=== PATIENT | female | born 1950 | race Caucasian/White ===

== ENCOUNTER → 2017-04-20 | Outpatient (CLI) | payer OTHER ==
--- NOTE | 2017-04-20 11:28 | DIAGNOSTIC IMAGING REPORT ---
RIGHT HIP UNILATERAL MIN 2 VIEWS CLINICAL HISTORY: Right hip pain COMPARISON: None. DISCUSSION: No fractures or dislocations are visualized. There are no erosive or destructive changes. The joint space appears relatively well preserved for age. IMPRESSION: Unremarkable conventional radiographic evaluation of the right hip for age Electronically signed by: Gwyn Johnson M.D. 04/20/2017 11:27 AM Dictated Date/Time: 04/20/2017 11:26 AM
== END | disposition home or self-care (01) ==
LOC: C.RDSM 11:00
PROVIDERS: ATTEND Physician Assistant
DX: M25.551 Pain in right hip (principal)

== ENCOUNTER → 2017-07-26 | Day surgery (SDC) | payer OTHER ==
[2017-07-02 10:31] VITALS: Ht 170.2 cm; Wt 63.6 kg
[~2017-07-26] VITALS: Ht 170.2 cm; Wt 63.6 kg
[~2017-07-26] MED LIST: AMIT10TA6 PO; CYM/60 PO; LIDOCAINE HCL 1% MPF 5 ML VIAL ONE; LINA1CAP2 PO; LSN/10125 PO; LYR50 PO; MELO15TA4 PO; PANT40TA PO; PREG1CAP70 PO; SODIUM CHLORIDE 0.9% INJ 10 ML VIAL ONE
--- NOTE | 2017-07-26 14:53 | History & Physical Bridge - [place] ---
H&P Re-Evaluation Bridge Note: I have examined the patient, reviewed the History & Physical and in the interval since the performance of the History & Physical I have noted the following changes of clinical significance: No changes noted
[2017-07-26 15:20] VITALS: BP 130/84; PULSE 77; O2SAT 97
--- NOTE | 2017-07-26 15:20 | Discharge Instructions ---
Discharge Instructions Date of Service Jul 26, 2017. Visit Reason for Visit: Sacral Radiculopathy Discharge Discharge Diagnosis / Problem: right leg pain Discharge Goals Goal(s): Decrease discomfort, Improve function Activity Recommendations Activity Limitations: resume your previous activity Anesthesia . Post Anesthesia Instructions: If you have had General Anesthesia or IV Sedation: * Do not drive today. * Resume driving when surgeon permits. * Do not make important decisions or sign legal documents today. * Call surgeon for: 1. Temperature elevations greater than 101 degrees F. 2. Uncontrollable pain. 3. Excessive bleeding. 4. Persistent nausea and vomiting. 5. Medication intolerance (nausea, vomiting or rash). * For nausea and vomiting use only clear liquids such as: tea, soda, bouillon until nausea subsides, then gradually increase diet as tolerated. * If you have any concerns or questions, call your surgeon's office. If physician is unavailable and it is an emergency, call 911 or go to the nearest emergency room. . Diet Recommendations Recommended Home Diet: resume previous diet Procedures Procedures Performed: Caudal Epidural Steroid Injection Pending Studies Studies pending at discharge: no Medical Emergencies . Who to Call and When: Medical Emergencies: If at any time you feel your situation is an emergency, please call 911 immediately. . Non-Emergent Contact Non-Emergency issues call your: Specialist . . "Provider Documentation" section prepared by Roberto Rae. .
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
== END | disposition home or self-care (01) ==
LOC: X.SURG 13:52
PROVIDERS: ATTEND Physical Medicine & Rehabilitation
DX: M96.1 Postlaminectomy syndrome, not elsewhere classified (principal); M54.18 Radiculopathy, sacral and sacrococcygeal region

== ENCOUNTER → 2017-12-03 | Day surgery (SDC) | payer OTHER ==
[2017-11-26 07:48] VITALS: Ht 170.2 cm; Wt 63.6 kg
[~2017-12-03] VITALS: Ht 170.2 cm; Wt 63.6 kg
[~2017-12-03] MED LIST changes: -AMIT10TA6 PO; +CHOL20009 PO; -LYR50 PO; +MELO-84 PO; -MELO15TA4 PO; +OMEG10007 PO; -PREG1CAP70 PO
--- NOTE | 2017-12-03 10:36 | [facility] Post Operative Brief Note ---
Immediate Operative Summary Operative Date Dec 03, 2017. Pre-Operative Diagnosis Status post laminectomy with persistent right lower extremity radiculopathy. Post-Operative Diagnosis Status post laminectomy with persistent right lower extremity radiculopathy. Procedure(s) Performed Caudal Epidural Steroid Injection. Surgeon Dr. Roberto Rae Water Filtration Technician Surgeon(s) None Estimated Blood Loss 0 Findings Consistent with Post-Op Diagnosis Specimens NA Drains None Anesthesia Type Local Complication(s) none Disposition Disposition:
--- NOTE | 2017-12-03 10:38 | Discharge Instructions ---
Discharge Instructions Date of Service Dec 03, 2017. Visit Reason for Visit: Radiculopathy, Sacral And Sacrococcygeal Region Discharge Discharge Diagnosis / Problem: right leg pain Discharge Goals Goal(s): Decrease discomfort, Improve function Activity Recommendations Activity Limitations: resume your previous activity Anesthesia . Post Anesthesia Instructions: If you have had General Anesthesia or IV Sedation: * Do not drive today. * Resume driving when surgeon permits. * Do not make important decisions or sign legal documents today. * Call surgeon for: 1. Temperature elevations greater than 101 degrees F. 2. Uncontrollable pain. 3. Excessive bleeding. 4. Persistent nausea and vomiting. 5. Medication intolerance (nausea, vomiting or rash). * For nausea and vomiting use only clear liquids such as: tea, soda, bouillon until nausea subsides, then gradually increase diet as tolerated. * If you have any concerns or questions, call your surgeon's office. If physician is unavailable and it is an emergency, call 911 or go to the nearest emergency room. . Diet Recommendations Recommended Home Diet: resume previous diet Procedures Procedures Performed: Caudal Epidural Steroid Injection. Pending Studies Studies pending at discharge: no Medical Emergencies . Who to Call and When: Medical Emergencies: If at any time you feel your situation is an emergency, please call 911 immediately. . Non-Emergent Contact Non-Emergency issues call your: Specialist . . "Provider Documentation" section prepared by Roberto Rae. .
[2017-12-03 10:40] VITALS: TEMP 36.4
[2017-12-03 10:58] VITALS: BP 146/99; PULSE 68; O2SAT 98
--- NOTE | 2017-12-03 11:34 | OPERATIVE REPORT ---
DATE OF OPERATION: 12/03/2017 PREOPERATIVE DIAGNOSIS: Right lumbar extremity radiculopathy status post laminectomy. POSTOPERATIVE DIAGNOSIS: Same. PROCEDURE: Caudal epidural steroid injection under fluoroscopic guidance. INDICATIONS: The patient is a 67-year-old white female who underwent a caudal epidural injection early in July. Reports that she did well until she fell and actually had gradual increase in the pain and she presents today for an epidural steroid injection to provide her with relief. PHYSICAL EXAMINATION: GENERAL: Pleasant female seated comfortably. MUSCULOSKELETAL EXAMINATION: Lumbar paraspinal muscles are nontender. Sciatic notch was tender on the right side. She had positive seated straight leg raise and decreased subjective sensation of the right L5 dermatomal distribution. CONSENT: Verbal and written consent was obtained from the patient. Risks and benefits were reviewed. Risks include but are not limited to epidural abscess, epidural hematoma, allergic reaction, dural puncture. The patient wishes to proceed. PROCEDURE: The patient was taken back to the special procedures room of the [facility]. She was maintained in a prone position. Backside was cleansed with Betadine x3 and a dry sterile dressing was applied. Fluoroscope was used to identify the sacral hiatus and overlying skin was anesthetized with 2.5 mL of lidocaine 1% with a 25 gauge 1.5-inch needle. A 25 gauge 3.5 inch spinal needle was easily directed under lateral fluoroscopic guidance from into the sacral hiatus into the canal. She then underwent injection after negative aspiration of 40 mg Depo-Medrol and 4 mL of preservative free sodium chloride. Injection was well tolerated. DISPOSITION: 1. The patient is taken out into the discharge recovery area where she will be discharged home once discharge criteria have been met. 2. Follow up in the [facility] office in 4 weeks' time. I attest to the content of the Intraoperative Record and any orders documented therein. Any exception s are noted below.
== END | disposition home or self-care (01) ==
LOC: X.SURG 08:58
PROVIDERS: ATTEND Physical Medicine & Rehabilitation
DX: M54.16 Radiculopathy, lumbar region (principal)